=== PATIENT | male | born 1950 | race Caucasian/White ===

== ENCOUNTER 2018-12-02 08:51 | Outpatient (CLI) | payer MEDICARE, OTHER | END 2018-12-02 23:59 | disposition home or self-care (01) | LOC: US 08:51 | PROVIDERS: ATTEND Internal Medicine Interventional Cardiology | DX: I71.4 Abdominal aortic aneurysm, without rupture (principal); R09.89 Other specified symptoms and signs involving the circulatory and respiratory systems | CPT/HCPCS: 76770-TC; 93880-TC ==